=== PATIENT | female | born 1990 | race Hispanic/Latino ===

== ENCOUNTER 2018-06-23 13:04 | Emergency (ER) | payer OTHER ==
[~2018-06-23] VITALS: Ht 157.5 cm; Wt 48.6 kg
[~2018-06-23 13:04] MED LIST: AMOXICILLIN250 M1 PO; AMOXICILLIN500 MG OR; COMBIVENT INH; MACRODANTIN100 MG OR; MAREPA1000 MG OR; MEDDOSEPAK PO; PRENATABS OR; PROVENTIL HFA IN
[2018-06-23] MEDS ORDERED: ZPAK PO (13:32)
[2018-06-23 13:35] VITALS: BP 104/64
== END 2018-06-23 13:35 | disposition home or self-care (01) ==
LOC: ED 13:04
DX: J02.9 Acute pharyngitis, unspecified (principal); R59.0 Localized enlarged lymph nodes; R05 Cough

== ENCOUNTER 2018-07-06 21:10 | Emergency (ER) | payer OTHER ==
[~2018-07-06] VITALS: Ht 157.5 cm; Wt 48.8 kg
[~2018-07-06 21:10] MED LIST changes: +ZPAK PO
[2018-07-06] MEDS ORDERED: VOLTAREN - GENE75 MG PO (23:17)
[2018-07-06 23:40] VITALS: BP 104/57
== END 2018-07-06 23:40 | disposition home or self-care (01) ==
LOC: ED 21:10
DX: S70.01XA Contusion of right hip, initial encounter (principal); S16.1XXA Strain of muscle, fascia and tendon at neck level, initial encounter; M54.2 Cervicalgia; W01.0XXA Fall on same level from slipping, tripping and stumbling without subsequent striking against object, initial encounter

== ENCOUNTER 2018-10-02 20:20 | Emergency (ER) | payer OTHER ==
[~2018-10-02] VITALS: Ht 157.5 cm; Wt 50.0 kg
[~2018-10-02 20:20] MED LIST changes: +VOLTAREN - GENE75 MG PO
[2018-10-02] MEDS ORDERED: NAPROSYN500 MG PO (21:36)
[2018-10-02 21:40] VITALS: BP 122/61
== END 2018-10-02 21:40 | disposition home or self-care (01) ==
LOC: ED 20:20
DX: N64.89 Other specified disorders of breast (principal); N64.4 Mastodynia

== ENCOUNTER 2018-12-06 09:17 | Emergency (ER) | payer OTHER ==
[~2018-12-06] VITALS: Ht 157.5 cm; Wt 45.0 kg
[~2018-12-06 09:17] MED LIST changes: +NAPROSYN500 MG PO
[2018-12-06 10:06] LABS: URINE BILIRUBIN - DIPSTICK NEGATIVE (NEGATIVE); URINE BLOOD DIPSTICK TRACE-INTACT (NEGATIVE); URINE COLOR YELLOW; URINE GLUCOSE - DIPSTICK NEGATIVE (NEGATIVE); URINE KETONE NEGATIVE (NEGATIVE); URINE NITRITE - DIPSTICK NEGATIVE (Negative); URINE PROTEIN - DIPSTICK NEGATIVE (NEG-TRACE); URINE UROBILINOGEN - DIPSTICK 0.2 E.U./dL (0.2)
[2018-12-06 10:07] LABS: URINE LEUK ESTERASE SMALL (NEGATIVE)
[2018-12-06 10:22] LABS: URINE BACTERIA FEW hpf; URINE RBC 0-2 RBC/hpf (0-5); URINE WBC 20-50 WBC/hpf (0-5)
[2018-12-06] MEDS ORDERED: CEPHALEXIN500 M1 PO (10:37)
[2018-12-06 10:51] VITALS: BP 100/55
== END 2018-12-06 10:58 | disposition home or self-care (01) ==
LOC: ED 09:17
PROVIDERS: Family Medicine
DX: S60.221A Contusion of right hand, initial encounter (principal); N39.0 Urinary tract infection, site not specified; V18.0XXA Pedal cycle driver injured in noncollision transport accident in nontraffic accident, initial encounter; Y93.55 Activity, bike riding

== ENCOUNTER → 2023-11-30 | Emergency (ER) | payer OTHER ==
[~2023-11-30] MED LIST changes: +CEPHALEXIN500 M1 PO
== END | disposition home or self-care (01) ==
LOC: ED 13:57
DX: S90.821A Blister (nonthermal), right foot, initial encounter (principal); F41.9 Anxiety disorder, unspecified; F32.A Depression, unspecified; X58.XXXA Exposure to other specified factors, initial encounter; Z72.0 Tobacco use; Z59.00 Homelessness unspecified

== ENCOUNTER 2023-12-11 23:31 | Emergency (ER) | payer OTHER ==
[~2023-12-11] VITALS: Ht 157.5 cm; Wt 65.0 kg
[2023-12-11 23:42] VITALS: BP 129/62
[2023-12-11 23:45] VITALS: BP 113/64
[2023-12-11] MEDS ORDERED: IPRATROPIUM-Albuterol 0.5MG-2.5MG/3 ML NEB ONE (23:50)
[2023-12-11] MEDS ORDERED: methylPREDNISolone SODIUM SUCC 125 MG/2 ML SDV IM STA (23:50)
[2023-12-12 00:16] VITALS: BP 117/62
[2023-12-12 00:30] VITALS: BP 108/70
[2023-12-12 01:00] VITALS: BP 114/63
[2023-12-12] MEDS ORDERED: VENTOLIN HFA IN (01:06)
[2023-12-12] MEDS ORDERED: MEDDOSEPAK PO (01:06)
[2023-12-12 01:15] VITALS: BP 104/57
[2023-12-12 01:22] VITALS: BP 104/57
== END 2023-12-12 01:24 | disposition home or self-care (01) ==
LOC: ED 23:31
DX: J45.901 Unspecified asthma with (acute) exacerbation (principal); F32.A Depression, unspecified; F41.9 Anxiety disorder, unspecified; Z72.0 Tobacco use; Z20.822 Contact with and (suspected) exposure to COVID-19

== ENCOUNTER 2023-12-22 13:43 | Emergency (ER) | payer OTHER ==
[~2023-12-22] VITALS: Ht 157.5 cm; Wt 55.0 kg
[2023-12-22] VITALS (10 sets, daily range): BP systolic 102–123; BP diastolic 59–97
[~2023-12-22 13:43] MED LIST changes: +VENTOLIN HFA IN
[2023-12-22] MEDS ORDERED: IBUPROFEN 600 MG/TAB PO ONE (14:05)
[2023-12-22] MEDS ORDERED: METHOCARBAMOL 500 MG/TAB PO ONE (14:05)
[2023-12-22] MEDS ORDERED: ACETAMINOPHEN 325 MG/TAB PO ONE (16:20)
[2023-12-22] MEDS ORDERED: IBUPAK600 MG PO ×2 (17:26→17:36)
[2023-12-22] MEDS ORDERED: METHOCARBAMOL500 MG PO ×2 (17:26→17:36)
== END 2023-12-22 17:55 | disposition home or self-care (01) ==
LOC: ED 13:43
DX: S39.012A Strain of muscle, fascia and tendon of lower back, initial encounter (principal); M25.562 Pain in left knee; J45.909 Unspecified asthma, uncomplicated; F41.9 Anxiety disorder, unspecified; F32.A Depression, unspecified; Z72.0 Tobacco use; W01.0XXA Fall on same level from slipping, tripping and stumbling without subsequent striking against object, initial encounter; Y92.79 Other farm location as the place of occurrence of the external cause